=== PATIENT | male | born 1980 | race Caucasian/White ===

== ENCOUNTER 2017-11-22 00:17 | Emergency (ER) | payer OTHER ==
[2017-11-22 00:30] VITALS: BP 146/83; PULSE 93; TEMP 97.9; BMI 34.4
--- NOTE | 2017-11-22 00:48 | PDOC ---
History of Present Illness <Marce Isbell - Last Filed: 11/22/17 03:00> - General History Source: Patient, Old Records Exam Limitations: No Limitations - History of Present Illness Initial Comments: 11/22/17 03:15 Patient is a 37 year old male with no significant past medical history who presents to the ED with left sided chest pain that began earlier today. Patient reports going to [facility] x3 days ago with similar symptoms, stating it was diagnosed as Anxiety. He reports receiving a chest CT with results coming back negative. Patient reports getting endoscopy 8 months ago due to recurring reflux, stating all results came back negative. He reports experiencing associated symptoms of back pain, throat pain, and general muscle pain. Patient reports coming in for further evaluation after symptoms returned after being discharged from [place]. Denies nausea, vomiting. Denies contact with sick individuals, out of state travelling. Denies fevers, chills. Denies any other symptoms. Allergies: None Social history: Lives with . No smoking. No alcohol. No illicit drugs. Surgical history: None PMD: Dr. winston <Joaquín Gonzales - Last Filed: 11/22/17 03:18> - General Chief Complaint: Shortness of Breath Stated Complaint: DIFFICULTY BREATHING Time Seen by Provider: 11/22/17 00:26 Past History - Immunization History Immunization Up to Date: Yes - Suicide/Smoking/Psychosocial Hx Smoking History: Never smoked Have you smoked in the past 12 months: No Number of Cigarettes Smoked Daily: 0 Information on smoking cessation initiated: No Hx Alcohol Use: No Drug/Substance Use Hx: No Substance Use Type: None <Marce Isbell - Last Filed: 11/22/17 03:00> <Joaquín Gonzales - Last Filed: 11/22/17 03:18> - Past Medical History Allergies/Adverse Reactions: Allergies Allergy/AdvReac Type Severity Reaction Status Date / Time No Known Allergies Allergy Verified 11/22/17 00:26 Home Medications: Ambulatory Orders No Home Medications 0 dose .ROUTE UTDICT 05/28/13 Review of Systems - Review of Systems Able to Perform ROS?: Yes Comments:: 11/22/17 03:15 GENERAL/CONSTITUTIONAL: No fever or chills. No weakness. HEAD, EYES, EARS, NOSE AND THROAT: +Throat pain. No change in vision. No ear pain or discharge. CARDIOVASCULAR: +Left sided chest pain. No shortness of breath. RESPIRATORY: No cough, wheezing, or hemoptysis. GASTROINTESTINAL: No nausea, vomiting, diarrhea or constipation. GENITOURINARY: No dysuria, frequency, or change in urination. MUSCULOSKELETAL: +General muscle pain. +Back pain. No neck pain. SKIN: No rash NEUROLOGIC: No headache, vertigo, loss of consciousness, or change in strength/ sensation. ENDOCRINE: No increased thirst. No abnormal weight change. HEMATOLOGIC/LYMPHATIC: No anemia, easy bleeding, or history of blood clots. ALLERGIC/IMMUNOLOGIC: No hives or skin allergy. <Joaquín Gonzales - Last Filed: 11/22/17 03:18> *Physical Exam - Vital Signs Last Vital Signs Temp Pulse Resp BP Pulse Ox 97.9 F 93 H 20 146/83 100 11/22/17 00:27 11/22/17 00:27 11/22/17 00:27 11/22/17 00:27 11/22/17 00:27 <Marce Isbell - Last Filed: 11/22/17 03:00> - Vital Signs Last Vital Signs Temp Pulse Resp BP Pulse Ox 97.9 F 93 H 20 146/83 100 11/22/17 00:27 11/22/17 00:27 11/22/17 00:27 11/22/17 00:27 11/22/17 00:27 - Physical Exam Comments: 11/22/17 03:15 GENERAL: Awake, alert, and fully oriented, in no acute distress HEAD: No signs of trauma EYES: PERRLA, EOMI, sclera anicteric, conjunctiva clear ENT: Auricles normal inspection, hearing grossly normal, nares patent, oropharynx clear without exudates. Moist mucosa NECK: Normal ROM, supple, no lymphadenopathy, JVD, or masses LUNGS: Breath sounds equal, clear to auscultation bilaterally. No wheezes, and no crackles HEART: Regular rate and rhythm, normal S1 and S2, no murmurs, rubs or gallops ABDOMEN: Soft, nontender, normoactive bowel sounds. No guarding, no rebound. No masses EXTREMITIES: Normal range of motion, no edema. No clubbing or cyanosis. No cords, erythema, or tenderness NEUROLOGICAL: Cranial nerves II through XII grossly intact. Normal speech, normal gait SKIN: Warm, Dry, normal turgor, no rashes or lesions noted. <Joaquín Gonzales - Last Filed: 11/22/17 03:18> Heart Score/ECG Review - ECG Intrepretation Comment:: 11/22/17 03:18 Completed @0:30:45 Normal sinus rhythm Vent. Rate 89 bpm SC interval 136 ms QRS duration 86 ms <Joaquín Gonzales - Last Filed: 11/22/17 03:18> ED Treatment Course - ADDITIONAL ORDERS Additional order review: Laboratory Results 11/22/17 01:04 Creatine Kinase 196 Creatine Kinase Index 0.6 CK-MB (CK-2) 1.212 Troponin I < 0.02 <Joaquín Gonzales - Last Filed: 11/22/17 03:18> Medical Decision Making - Medical Decision Making 11/22/17 01:00 Pt comes with SOB, yet he is having no SOB, and he has 100% O2 sat, normal breath sounds and normal respiratory rate. Pt is speaking in full sentences. Pt insists that ever since his strep throat he and his son have been having the same symptoms of CP and SOB. He has normal BP, and normal exam. Pt is afebrile. He was at [facility] ER 3 days ago and he was fully worked up with CT chest etc. Ultimately sent home with a dx of anxiety. Pt will have EKG, cardiac panel and sed rate here. He can follow with PMD. 11/22/17 03:00 EKG normal; sed rate 2 (normal) cardiac panel normal. Pt will be discharged. Panic /anxiety/psychosomatic d/o <Marce Isbell - Last Filed: 11/22/17 03:00> *DC/Admit/Observation/Transfer - Discharge Dispostion Decision to Admit order: No <Marce Isbell - Last Filed: 11/22/17 03:00> - Attestations Scribe Attestion: 11/22/17 03:15 Documentation prepared by Joaquín Gonzales, acting as medical reviewer for Marce Isbell MD/DO. <Joaquín Gonzales - Last Filed: 11/22/17 03:18> Diagnosis at time of Disposition: Panic anxiety syndrome - Discharge Dispostion Disposition: HOME Condition at time of disposition: Stable - Referrals Referrals: Preet Domínguez MD [Staff Physician] - - Patient Instructions Printed Discharge Instructions: Anxiety and Panic Attacks (Alternative Therapy)
--- NOTE | 2017-11-22 08:41 | EKG ---
Test Reason : Blood Pressure : / mmHG Vent. Rate : 089 BPM Atrial Rate : 089 BPM P-R Int : 136 ms QRS Dur : 086 ms QT Int : 360 ms P-R-T Axes : 055 020 025 degrees QTc Int : 438 ms NORMAL SINUS RHYTHM NORMAL ECG WHEN COMPARED WITH ECG OF 28-MAY-2013 16:03, NO SIGNIFICANT CHANGE WAS FOUND Confirmed by MURALI ANDERSON MD ([id number]) on 11/22/2017 8:41:04 AM Referred By: Confirmed By:MURALI ANDERSON MD
== END 2017-11-22 03:07 | disposition home or self-care (01) ==
LOC: JER 00:17
DX: F41.0 Panic disorder [episodic paroxysmal anxiety] (principal)
CPT/HCPCS: 36415; 82550; 82553; 84484; 85651; 93005; 93010; 99281-25

== ENCOUNTER 2018-12-05 06:27 | Emergency (ER) | payer OTHER | END 2018-12-05 09:18 | disposition home or self-care (01) | LOC: JER 06:27 ==

== ENCOUNTER 2021-08-29 15:09 | Emergency (ER) | payer OTHER ==
[2021-08-29 15:48] VITALS: BP 122/75; PULSE 89; TEMP 98.1; BMI 36.0
[2021-08-29 18:19] LABS: THROAT:GRP A STREP NOT DETECTED (NOTDETECTED)
[2021-08-30 12:08] LABS: SARS-CoV-2 NAA Detected (Not Detected)
== END 2021-08-29 16:30 | disposition home or self-care (01) ==
LOC: JER 15:09
DX: R07.0 Pain in throat (principal)
CPT/HCPCS: 87651; 99283-25; C9803; U0003; U0005

== ENCOUNTER 2022-09-26 04:15 | Day surgery (SDC) | payer OTHER ==
[2022-09-23 17:20] VITALS: BMI 34.4
[~2022-09-26 04:15] MED LIST: LIDOCAINE 1%/EPI 1:100000 (20 ML MULTI DOSE VIAL) IJ ONE
[2022-09-26] MEDS ORDERED: PROPOFOL 20 ML ONE (08:04)
[2022-09-26] MEDS ORDERED: MIDAZOLAM HCL 2 MG/2 ML SINGLE DOSE VIAL ONE (08:04)
[2022-09-26] MEDS ORDERED: LIDOCAINE 1%/EPI 1:100000 (20 ML MULTI DOSE VIAL) IJ ONE (08:39)
[2022-09-26] MEDS ORDERED: BACITRACIN ZINC 15 GM TUBE TOPICAL OINTMENT ONE (08:48)
[2022-09-26 09:31] VITALS: RESP 20
[2022-09-26 11:20] VITALS: BP 112/67; PULSE 54; TEMP 97.9
== END 2022-09-26 11:48 | disposition home or self-care (01) ==
LOC: JASU-SURG 04:15
PROVIDERS: ATTEND Surgery
PROC: 0HB0XZZ Excision of Scalp Skin, External Approach (ICD-10-PCS; principal; 2022-09-26 08:00)
DX: D22.9 Melanocytic nevi, unspecified (principal)
CPT/HCPCS: 88305-TC

== ENCOUNTER 2022-10-07 05:53 | Emergency (ER) | payer OTHER ==
[2022-10-07 06:12] VITALS: BMI 34.4
[2022-10-07 06:52] LABS: BASO % 0.6 % (0-2.0); EOS % 3.1 % (0-4.5); HEMATOCRIT 45.1 % (35.4-49); HEMOGLOBIN 15.8 GM/dL (11.7-16.9); LYMPH % 41.9 % (8-40); MCH 29.4 pg (25.7-33.7); MEAN PLT VOLUME 8.7 fl (7.5-11.1); MONO % 7.8 % (3.8-10.2); NEUT % 46.6 % (42.8-82.8); PLATELET COUNT 146 10^3/uL (134-434); RBC 5.37 M/mm3 (4.00-5.60); RDW 13.7 % (11.9-15.9); WHITE BLOOD COUNT 6.1 K/mm3 (4.0-10.0)
[2022-10-07 06:59] LABS: INR 1.03 (0.83-1.09)
[2022-10-07 07:02] LABS: ACTIVATED PTT 35.9 SECONDS (25.2-36.5)
[2022-10-07 07:13] LABS: CALCIUM 8.7 mg/dL (8.5-10.1)
[2022-10-07 07:14] LABS: ALBUMIN 3.9 g/dl (3.4-5.0); BLOOD UREA NITROGEN 22.5 mg/dL (7-18)
[2022-10-07 07:17] LABS: CREATININE 0.9 mg/dL (0.55-1.3)
[2022-10-07 07:19] LABS: BILIRUBIN,TOTAL 0.6 mg/dL (0.2-1); TOT PROT 7.3 g/dl (6.4-8.2)
[2022-10-07] MEDS ORDERED: FAMOTIDINE 20 MG TABLET PO ONE (08:01)
[2022-10-07] MEDS ORDERED: FAMOTIDINE 20 MG TABLET ONE (08:08)
[2022-10-07 08:24] VITALS: BP 126/92; PULSE 58; RESP 16; TEMP 98
== END 2022-10-07 08:30 | disposition home or self-care (01) ==
LOC: JER 05:53
DX: R07.89 Other chest pain (principal)
CPT/HCPCS: 36415; 71046-TC-FY; 80053; 84484; 85025; 85610; 85730; 93005; 93010; 99285-25

== ENCOUNTER 2023-11-04 16:33 | Emergency (ER) | payer OTHER ==
[2023-11-04 16:42] VITALS: BP 105/62; PULSE 73; RESP 17; TEMP 97.8
[2023-11-04] MEDS: MAGNESIUM HYDROX 2400MG/30ML ORAL SUSPENSION 30 ML CUP PO ONE (17:46)
[2023-11-04] MEDS ORDERED: MAGNESIUM HYDROX 2400MG/30ML ORAL SUSPENSION 30 ML CUP ONE (17:46)
[2023-11-04] MEDS: MINERAL OIL ENEMA 133 ML ENEMA RC ONE (17:47)
== END 2023-11-04 19:11 | disposition home or self-care (01) ==
LOC: JER 16:33
DX: K59.00 Constipation, unspecified (principal); R10.84 Generalized abdominal pain; R11.10 Vomiting, unspecified
CPT/HCPCS: 74021-TC-FY; 99283-25